=== PATIENT | female | born 1950 | race African-American/Black ===

== ENCOUNTER 2017-01-23 07:01 | Emergency (ER) | payer MEDICARE, OTHER ==
[~2017-01-23] VITALS: Ht 172.7 cm; Wt 93.6 kg
[2017-01-23] MEDS ORDERED: HYDR25TA PO (07:08)
[2017-01-23] MEDS ORDERED: SIMV-260 PO (07:08)
[2017-01-23] MEDS ORDERED: BENA20 PO (07:08)
[2017-01-23] MEDS ORDERED: 0.9% SODIUM CHLORIDE 5 ML NEB SOLUTION NEB ONE (07:56)
[2017-01-23] MEDS ORDERED: ALBUTEROL SULFATE 2.5 MG/0.5 ML NEB SOLUTION NEB ONE (08:00)
[2017-01-23] MEDS ORDERED: IPRATROPIUM BROMIDE 0.5 MG/2.5 ML NEB SOLUTION NEB ONE (08:00)
[2017-01-23 08:55] VITALS: BP 115/72
== END 2017-01-23 09:37 | disposition home or self-care (01) ==
LOC: EMS 07:04
DX: J40 Bronchitis, not specified as acute or chronic (principal); E78.00 Pure hypercholesterolemia, unspecified; I10 Essential (primary) hypertension
CPT/HCPCS: 94640; 99283

== ENCOUNTER 2020-11-20 07:32 | Emergency (ER) | payer MEDICARE, OTHER ==
[~2020-11-20] VITALS: Ht 172.7 cm; Wt 86.4 kg
[~2020-11-20 07:32] MED LIST: BENA20TA11 PO; HYDR25TA2 PO; SIMV-260 PO
[2020-11-20 07:35] VITALS: BP 106/64
== END 2020-11-20 08:48 | disposition home or self-care (01) ==
LOC: EMS 07:38
DX: S60.444A External constriction of right ring finger, initial encounter (principal); W49.04XA Ring or other jewelry causing external constriction, initial encounter; Y93.89 Activity, other specified; Y92.89 Other specified places as the place of occurrence of the external cause; Y99.8 Other external cause status
CPT/HCPCS: 99284; Z7502